=== PATIENT | female | born 1990 | race Caucasian/White ===

== ENCOUNTER 2020-02-09 11:11 | Emergency (ER) | payer OTHER ==
[2020-02-09 11:28] VITALS: BP 122/78; PULSE 95; TEMP 97.9; BMI 24.4
[2020-02-09 12:22] LABS: EPI CELLS 9 /uL (0-25.1); HYALINE CASTS 0 /uL (0-3.1); PH,URINE 6.5 (5.0-8.0); URINE APPEARANCE CLEAR; URINE BACTERIA 177 /uL (0-1359); URINE BILIRUBIN NEGATIVE (NEGATIVE); URINE COLOR YELLOW; URINE GLUCOSE (UA) NEGATIVE (NEGATIVE); URINE KETONE NEGATIVE (NEGATIVE); URINE LEUK ESTERASE NEGATIVE (NEGATIVE); URINE NITRITE NEGATIVE (NEGATIVE); URINE PROTEIN NEGATIVE (NEGATIVE); URINE RBC 61 /uL (0-23.9); URINE UROBILINOGEN 0.2 mg/dL (0.2-1.0); URINE WBC 6 /uL (0-25.8)
[2020-02-09 12:37] LABS: BASO % 0.2 % (0-2.0); HEMATOCRIT 40.4 % (32.4-45.2); HEMOGLOBIN 13.5 GM/dL (10.7-15.3); LYMPH % 16.1 % (8-40); MCHC 33.3 g/dl (32.0-36.0); MEAN CELL VOLUME 90.1 fl (80-96); MEAN PLT VOLUME 8.1 fl (7.5-11.1); MONO % 7.1 % (3.8-10.2); NEUT % 73.6 % (42.8-82.8); PLATELET COUNT 308 K/MM3 (134-434); RBC 4.49 M/mm3 (3.60-5.2); RDW 13.2 % (11.6-15.6); WHITE BLOOD COUNT 11.5 K/mm3 (4.0-10.0)
[2020-02-09 12:55] LABS: POTASSIUM 3.8 mmol/L (3.5-5.1)
[2020-02-09 12:59] LABS: ALBUMIN 4.3 g/dl (3.4-5.0); BLOOD UREA NITROGEN 11.8 mg/dL (7-18); CALCIUM 8.9 mg/dL (8.5-10.1)
[2020-02-09 13:02] LABS: CREATININE 0.6 mg/dL (0.55-1.3)
[2020-02-09 13:04] LABS: BILIRUBIN,TOTAL 0.4 mg/dL (0.2-1); TOT PROT 7.8 g/dl (6.4-8.2)
[2020-02-09 13:18] LABS: YEAST NO SEEN (NEGATIVE)
== END 2020-02-09 14:06 | disposition home or self-care (01) ==
LOC: JER 11:11
DX: O03.9 Complete or unspecified spontaneous abortion without complication (principal)
CPT/HCPCS: 36415; 76817-TC; 80053; 81003; 84702; 85025; 86850; 86900; 86901; 87077; 87086; 99284-25

== ENCOUNTER 2020-12-02 08:59 | Emergency (ER) | payer OTHER ==
[2020-12-02 09:10] VITALS: BP 110/48; PULSE 87; TEMP 98.6; BMI 25.3
[2020-12-02 09:45] LABS: BASO % 0.5 % (0-2.0); EOS % 2.7 % (0-4.5); HEMATOCRIT 38.3 % (32.4-45.2); HEMOGLOBIN 12.8 GM/dL (10.7-15.3); LYMPH % 20.4 % (8-40); MCH 29.3 pg (25.7-33.7); MCHC 33.5 g/dl (32.0-36.0); MEAN CELL VOLUME 87.5 fl (80-96); MEAN PLT VOLUME 7.6 fl (7.5-11.1); MONO % 7.2 % (3.8-10.2); NEUT % 69.2 % (42.8-82.8); PLATELET COUNT 327 10^3/uL (134-434); RBC 4.37 M/mm3 (3.60-5.2); RDW 14.5 % (11.6-15.6); WHITE BLOOD COUNT 9.1 K/mm3 (4.0-10.0)
[2020-12-02 09:50] LABS: PH,URINE 6.5 (5.0-8.0); URINE APPEARANCE CLEAR; URINE BILIRUBIN NEGATIVE (NEGATIVE); URINE COLOR YELLOW; URINE GLUCOSE (UA) NEGATIVE (NEGATIVE); URINE KETONE NEGATIVE (NEGATIVE); URINE LEUK ESTERASE NEGATIVE (NEGATIVE); URINE NITRITE NEGATIVE (NEGATIVE); URINE PROTEIN NEGATIVE (NEGATIVE); URINE UROBILINOGEN 0.2 mg/dL (0.2-1.0)
[2020-12-02 10:04] LABS: ALBUMIN 4.1 g/dl (3.4-5.0)
[2020-12-02 10:05] LABS: BLOOD UREA NITROGEN 12.6 mg/dL (7-18)
[2020-12-02 10:08] LABS: CREATININE 0.6 mg/dL (0.55-1.3)
[2020-12-02 10:09] LABS: BILIRUBIN,TOTAL 0.3 mg/dL (0.2-1); TOT PROT 7.8 g/dl (6.4-8.2)
== END 2020-12-02 11:55 | disposition home or self-care (01) ==
LOC: JER 08:59
DX: O26.851 Spotting complicating pregnancy, first trimester (principal); N83.11 Corpus luteum cyst of right ovary; R10.9 Unspecified abdominal pain; Z3A.01 Less than 8 weeks gestation of pregnancy
CPT/HCPCS: 36415; 76817-TC; 80053; 81003; 84702; 85025; 87086; 99284-25

== ENCOUNTER 2021-07-22 14:00 | Inpatient (IN) | payer OTHER ==
[2021-07-22] MEDS ORDERED: ELECTROLYTE-148 SOLN 1,000 ML IV SCH ×2 (17:30→18:01)
[2021-07-22] MEDS ORDERED: CITRIC ACID/SODIUM CITRATE 30 ML UNIT-DOSE CUP PO ONE (17:40)
[2021-07-22 18:42] VITALS: BMI 31.8
[2021-07-22] MEDS ORDERED: morphine SULFATE/PF 1 MG/2 ML (2cc Syringe - QUVA) ONE (20:31)
[2021-07-22] MEDS ORDERED: ceFAZolin SODIUM 1 GM VIAL ONE (20:32)
[2021-07-22] MEDS ORDERED: SODIUM CHLORIDE 0.9% P/F 10 ML VIAL IJ ONE (20:33)
[2021-07-22] MEDS ORDERED: OXYTOCIN 10 UNITS/ML VIAL ONE (22:56)
[2021-07-22] MEDS ORDERED: ONDANSETRON 4 MG/2 ML VIAL ONE (23:01)
[2021-07-22] MEDS ORDERED: KETOROLAC TROMETHAMINE 30 MG/1 ML VIAL ONE (23:01)
[2021-07-22] MEDS ORDERED: OXYTOCIN 20 UNITS in 0.9% NS 20 UNIT/1,000 ML INFUS.BAG IV SCH (23:45)
[2021-07-22] MEDS ORDERED: METHYLERGONOVINE MALEATE 0.2 MG/1 ML AMP IM PRN (23:49)
[2021-07-22] MEDS ORDERED: ACETAMINOPHEN 325 MG TABLET (FP) PO PRN ×2 (23:49→23:52)
[2021-07-22] MEDS ORDERED: IBUPROFEN 600 MG TABLET (FP) PO PRN (23:52)
[2021-07-22] MEDS ORDERED: morphine SULFATE/PF 1 MG/2 ML (2cc Syringe - QUVA) SPIN ONE (23:52)
[2021-07-22] MEDS ORDERED: ONDANSETRON 4 MG/2 ML VIAL IVPUSH PRN (23:52)
[2021-07-23] MEDS ORDERED: OXYTOCIN 20 UNITS in 0.9% NS 20 UNIT/1,000 ML INFUS.BAG IV ONE (00:24)
[2021-07-23] MEDS ORDERED: CEFAZOLIN 1 GM in DEXTROSE 5%-WATER - 50 ML IVPB SCH (02:00)
[2021-07-23] MEDS: IBUPROFEN 600 MG TABLET (FP) PO PRN ×2 (05:57→13:47)
[2021-07-23] MEDS: SIMETHICONE 80 MG TAB.CHEW (FP) PO PRN ×3 (05:58→23:54)
[2021-07-23 09:18] LABS: BASO % 0.2 % (0-2.0); HEMATOCRIT 36.1 % (32.4-45.2); HEMOGLOBIN 12.2 GM/dL (10.7-15.3); LYMPH % 8.5 % (8-40); MCH 29.7 pg (25.7-33.7); MCHC 33.7 g/dl (32.0-36.0); MEAN CELL VOLUME 88.1 fl (80-96); MEAN PLT VOLUME 9.8 fl (7.5-11.1); MONO % 4.4 % (3.8-10.2); NEUT % 86.9 % (42.8-82.8); PLATELET COUNT 210 10^3/uL (134-434); RDW 13.6 % (11.6-15.6); WHITE BLOOD COUNT 15.4 K/mm3 (4.0-10.0)
[2021-07-23] MEDS ORDERED: ceFAZolin SODIUM 1 GM VIAL ONE ×2 (10:13→17:00)
[2021-07-23] MEDS ORDERED: DEXTROSE 5%-WATER - 50 ML IVPB ONE ×2 (10:13→17:00)
[2021-07-23] MEDS: CEFAZOLIN 1 GM in DEXTROSE 5%-WATER - 50 ML IVPB SCH ×2 (10:17→17:03)
[2021-07-23] MEDS: ENOXAPARIN NA (PORCINE) 40 MG/0.4 ML DISP.SYRIN SQ SCH (10:17)
[2021-07-23] MEDS ORDERED: oxyCODONE HCL 5 MG TABLET PO PRN (11:49)
[2021-07-23] MEDS ORDERED: BISACODYL 10 MG SUPP.RECT RC PRN (23:49)
[2021-07-23] MEDS: oxyCODONE HCL 5 MG TABLET PO PRN (23:53)
[2021-07-24] MEDS: oxyCODONE HCL 5 MG TABLET PO PRN ×4 (07:50→23:47)
[2021-07-24] MEDS: ENOXAPARIN NA (PORCINE) 40 MG/0.4 ML DISP.SYRIN SQ SCH (09:08)
[2021-07-24] MEDS: SIMETHICONE 80 MG TAB.CHEW (FP) PO PRN ×3 (11:54→23:47)
[2021-07-24] MEDS: IBUPROFEN 600 MG TABLET (FP) PO PRN (15:00)
[2021-07-25] MEDS: SIMETHICONE 80 MG TAB.CHEW (FP) PO PRN ×4 (04:37→20:42)
[2021-07-25] MEDS: oxyCODONE HCL 5 MG TABLET PO PRN ×4 (04:37→20:41)
[2021-07-25] MEDS: ENOXAPARIN NA (PORCINE) 40 MG/0.4 ML DISP.SYRIN SQ SCH (09:28)
[2021-07-25 09:42] LABS: BASO % 0.3 % (0-2.0); EOS % 3.6 % (0-4.5); HEMATOCRIT 34.3 % (32.4-45.2); HEMOGLOBIN 11.5 GM/dL (10.7-15.3); LYMPH % 21.8 % (8-40); MCH 29.9 pg (25.7-33.7); MCHC 33.6 g/dl (32.0-36.0); MEAN PLT VOLUME 8.9 fl (7.5-11.1); MONO % 11.5 % (3.8-10.2); NEUT % 62.8 % (42.8-82.8); PLATELET COUNT 211 10^3/uL (134-434); RBC 3.85 M/mm3 (3.60-5.2); WHITE BLOOD COUNT 9.2 K/mm3 (4.0-10.0)
[2021-07-25 21:36] VITALS: PULSE 83; TEMP 98.3
[2021-07-25] MEDS: IBUPROFEN 600 MG TABLET (FP) PO PRN (22:29)
[2021-07-26] MEDS: SIMETHICONE 80 MG TAB.CHEW (FP) PO PRN ×2 (00:37→09:40)
[2021-07-26] MEDS: ENOXAPARIN NA (PORCINE) 40 MG/0.4 ML DISP.SYRIN SQ SCH (09:40)
[2021-07-26] MEDS: IBUPROFEN 600 MG TABLET (FP) PO PRN (09:40)
[2021-07-26 11:13] VITALS: BP 115/75
== END 2021-07-26 12:45 | disposition home or self-care (01) | DRG 540 ==
LOC: JLDR 16:54 → J3W 07-23 01:42
PROVIDERS: ADMIT Obstetrics & Gynecology; ATTEND Obstetrics & Gynecology
PROC: 10D00Z1 Extraction of Products of Conception, Low, Open Approach (ICD-10-PCS; principal; 2021-07-22)
DX: O34.211 Maternal care for low transverse scar from previous cesarean delivery (principal); O32.1XX0 Maternal care for breech presentation, not applicable or unspecified; O24.424 Gestational diabetes mellitus in childbirth, insulin controlled; Z3A.39 39 weeks gestation of pregnancy; Z37.0 Single live birth
CPT/HCPCS: 36415; 71046-TC-FY; 80048; 82962; 85025; 85610; 85730; 86780; 86850; 86900; 86901; 88307-TC; C9803-CS; U0003; U0005